=== PATIENT | male | born 1975 | race Caucasian/White ===

== ENCOUNTER 2017-04-08 20:16 | Emergency (ER) | payer OTHER ==
[~2017-04-08] VITALS: Ht 175.3 cm; Wt 95.3 kg
[~2017-04-08 20:16] MED LIST: AMLODIPINE PO; COREG PO; IBUPROFEN 800800 M1 PO; LIPITOR PO; LIPITOR10 MG; LISINOPRIL5 MG PO
[2017-04-08] MEDS ORDERED: LEXAPRO 10 MG T10 MG (20:29)
[2017-04-08] MEDS ORDERED: HYDROCODONE-AP1 EAC6 PO (22:30)
[2017-04-08 23:03] VITALS: BP 127/81
== END 2017-04-08 23:04 | disposition home or self-care (01) ==
LOC: M.ERS 20:16
DX: S92.351A Displaced fracture of fifth metatarsal bone, right foot, initial encounter for closed fracture (principal); E78.00 Pure hypercholesterolemia, unspecified; F17.200 Nicotine dependence, unspecified, uncomplicated; Z88.0 Allergy status to penicillin; Z88.1 Allergy status to other antibiotic agents; X50.1XXA Overexertion from prolonged static or awkward postures, initial encounter; Y93.89 Activity, other specified; Y92.89 Other specified places as the place of occurrence of the external cause; Y99.8 Other external cause status

== ENCOUNTER 2018-07-04 09:57 | Inpatient (IN) | payer OTHER ==
[2018-07-04] VITALS (11 sets, daily range): BP systolic 103–154; BP diastolic 49–88
[~2018-07-04] VITALS: Ht 175.3 cm; Wt 99.2 kg
[~2018-07-04 09:57] MED LIST changes: +CARVEDILOL3.125 MG PO; -COREG PO; +HYDROCODONE-AP1 EAC6 PO; +LEXAPRO 10 MG T10 MG PO; -LIPITOR10 MG; +LIPITOR10 MG PO
[2018-07-04 10:59] LABS: ABSOLUTE EOSINOPHILS 0.1 thou/uL (0.0-0.7); ABSOLUTE LYMPHOCYTES 1.3 thou/uL (0.8-5.3); ABSOLUTE MONOCYTES 1.3 thou/uL (0.0-1.2); ABSOLUTE NEUTROPHILS 4.7 thou/uL (1.6-8.1); BASOPHILS 0.3 %; EOSINOPHILS 1.9 %; HEMATOCRIT 38.3 % (42.0-52.0); HEMOGLOBIN 12.8 gm/dL (14.0-18.0); LYMPHOCYTES 17.4 %; MCH 26.2 pg (26.0-34.0); MCHC 33.5 g/dL (28.0-37.0); MCV 78.1 fL (80.0-100.0); MONOCYTES 17.5 %; MPV 8.8 fl. (7.2-11.1); NUCLEATED RBCS 0 /100WBC; PLATELET COUNT* 267 thou/uL (150-400); POLYS 62.9 %; RBC 4.91 mil/uL (4.50-6.00); RDW-CV 13.5 % (10.5-14.5); WBC 7.5 thou/uL (4.0-11.0)
[2018-07-04 11:13] LABS: APTT 28.9 Seconds (25.0-31.3)
[2018-07-04 11:23] LABS: CALCIUM 8.3 mg/dL (8.5-10.1); POTASSIUM 3.4 mmol/L (3.5-5.1)
[2018-07-04 11:25] LABS: TROPONIN-I LEVEL 1.64 ng/mL (<0.06)
[2018-07-04 11:28] LABS: ALBUMIN 2.8 g/dL (3.4-5.0); CK-MB MASS 3.4 ng/mL (<0.5-3.6); MAGNESIUM 2.2 mg/dL (1.8-2.4); TOTAL BILIRUBIN 0.7 mg/dL (<0.1-1.0); TOTAL PROTEIN 6.5 g/dL (6.4-8.2)
[2018-07-04 14:16] LABS: CHOLESTEROL 133 mg/dL (<200); HDL CHOLESTEROL 30 mg/dL (>40); LDL CHOLESTEROL 76 mg/dL (<100); TC:HDL 4.4 Ratio (Not establshd); TRIGLYCERIDE 137 mg/dL (<150); VLDL 27 mg/dL (<40)
[2018-07-04 14:17] LABS: SERUM ASSESSMENT Clear
--- NOTE | 2018-07-04 16:06 | EKG ---
[place] [address] ELECTROCARDIOGRAM REPORT Name: FRENCH SHARMA Room: [place] [address] ADM IN .R.#: [id number] Admission: 07/04/18 Attend Phys: Navya Olson MD Discharge: Date of : 73 Report #: [id number] THIS REPORT FOR: //name// [facility] ED Test Date: 2018-07-04 Test Time: 10:04:18 Pat Name: FRENCH SHARMA Department: Room: [facility] Gender: M Shop Hand: : 1975 Requested By: Adolfo Ro Order Number: [id number] MD: Yrn Nixon Measurements Intervals [place] Rate: 77 P: 38 WA: 151 QRS: -2 QRSD: 89 T: 19 QT: 381 QTc: 432 Interpretive Statements Sinus rhythm ST elevation suggests acute pericarditis Compared to ECG 04/25/2011 13:34:26 no change Electronically Signed On 07-04-2018 16:06:27 CDT by Yrn Nixon [email or web address] <ELECTRONICALLY SIGNED> By: Yrn Nixon MD, [facility] 07/04/18 1606 1004 1004 Yrn Nixon MD, [facility] /EPI
[2018-07-04 18:53] LABS: INFLUENZA A ANTIGEN None Detected (None Detect); INFLUENZA B ANTIGEN None Detected (None Detect)
[2018-07-05] VITALS (7 sets, daily range): BP systolic 81–113; BP diastolic 47–71
[2018-07-05 04:45] LABS: ANION GAP 7 mmol/L (7-16); BUN 10 mg/dL (7-18); CALCIUM 8.2 mg/dL (8.5-10.1); CHLORIDE 103 mmol/L (98-107); CHOLESTEROL 117 mg/dL (<200); CO2 32 mmol/L (21-32); GLUCOSE 107 mg/dL (70-99); HDL CHOLESTEROL 27 mg/dL (>40); LDL CHOLESTEROL 65 mg/dL (<100); POTASSIUM 3.3 mmol/L (3.5-5.1); SODIUM 142 mmol/L (136-145); TC:HDL 4.3 Ratio (Not establshd); TRIGLYCERIDE 127 mg/dL (<150); VLDL 25 mg/dL (<40)
[2018-07-05 04:54] LABS: SERUM ASSESSMENT CLEAR
[2018-07-05 04:55] LABS: TROPONIN-I LEVEL 1.48 ng/mL (<0.06)
--- NOTE | 2018-07-05 06:51 | CARD ---
[address] [address] CARDIAC CATH REPORT Name: FRENCH SHARMA Room: [address] IN [facility]#: [id number] Admission: 07/04/18 Attend Phys: Navya Olson MD Discharge: Date of : 73 Report #: [id number] THIS REPORT FOR: //name// APPROVED REPORT Study performed: 07/04/2018 13:45:45 Patient Details Patient Status: ED Room #: The patient is a 42 year-old male Event Personnel Yrn Nixon Manager Cable, Stacia Valero RN Press Maintainer, Abigail Bruno RN Monitor, Connor Reilly (R) Scrub Procedures Performed Art Access - L femoral artery* Left Heart Cath w/or w/o Coronarie LHC Hemostasis w/ Mynx Indication Abnormal ECG, Non-STEMI , Chest pain Risk Factors Hypercholesterolemia, Hypertension Procedure Narrative The patient was brought electively to the Cardiac Catheterization Laboratory and was prepped and draped in a sterile manner. The right wrist was infiltrated with 2% Lidocaine subcutaneous anesthesia. A Slender Glidesheath sheath was inserted into the right radial artery. Coronary angiography was performed using coronary diagnostic catheters. The right coronary system was accessed and visualized with a 6Fr. JR4 catheter. The left coronary system was accessed and visualized with a 6Fr JL 3.5 catheter. The left ventricle was accessed and visualized with a 6Fr. Pigtail catheter. Left ventricular/Aortic Valve gradient assessed via catheter pullback. Closure device was deployed with a [facility]. The patient tolerated the procedure well and there were no complications associated with the procedure. There was no hematoma. The Left Coronary System could not be visualized with the radial access site after trying a Cordova catheter. Attempt was difficulty secondary to a tortuous subclavian and aortic root. Arterial Access was then moved to the Groin JL4 catheter used to engage the left coronary artery. Angioseal used at the [place] [address] CARDIAC CATH REPORT Name: FRENCH SHARMA Room: [address]#: [id number] Admission: 07/04/18 Attend Phys: Navya Olson MD Discharge: Date of : 73 Report #: [id number] Intraoperative Conscious Sedation Fentanyl 25 mcg Dose: 1338 mGy Contrast Type and Amount: Visipaque 180 ml Coronary Angiography The patient's coronary anatomy is co- dominant. [place] Artery Percent Stenosis Left Main: 0 % Prox LAD: 0 % Mid/Distal LAD: 30 % Circumflex: 0 % RCA: 0 % Ramus: 0 %There appeared to be retrograde flow to the distal circumflex from the distal RCA. No significant stenosis was noted in the distal circumflex which appeared to have dual arterial blood supply. Left Ventriculography The left ventricle is normal in size with normal contractility. The left ventricular ejection fraction is estimated to be 50-55%. Left ventricular wall motion abnormalities are not present. There is no mitral insufficiency. Hemodynamics The aortic pressure is 103/48 mmHg with a mean of 51 mmHg. The left ventricular pressure is 91/20 mmHg with a mean of mmHg. The left ventricular end diastolic pressure is 24 mmHg. There was no gradient across the aortic valve upon pullback. Pullback from the left ventricle to the aorta revealed no gradient across the aortic valve. Conclusion 1. no significant CAD noted. The distal circumflex appeared to have a dual blood supply from the rca and circumflex 2. LVEF 50-55% Recommendations Aggressive Medical Therapy <ELECTRONICALLY SIGNED> By: Yrn Nixon MD, FACC 07/05/1850 0650Yrn Nixon MD, FACC /INF
--- NOTE | 2018-07-05 12:30 | 2DMMODE ---
[place] [address] 2 D/M-MODE ECHOCARDIOGRAM Name: FRENCH SHARMA Room: [address] IN [facility]#: [id number] Admission: 07/04/18 Attend Phys: Navya Olson, Discharge: Date of : 73 Date of Service: 07/05/18 1230 Report #: [id number] THIS REPORT FOR: //name// APPROVED REPORT Study performed: 07/05/2018 09:32:45 EXAM: Comprehensive 2D, Doppler, and color-flow Echocardiogram Patient Location: In-Patient Room #: [facility] Status: routine BSA: 2.15 HR: 81 bpm BP: 95/56 mmHg Rhythm: NSR Other Information Study Quality: Good Indications Chest Pain 2D Dimensions IVSd: 14.09 (7-11mm) LVOT Diam: 19.70 (18-24mm) LVDd: 45.56 mm PWd: 12.52 (7-11mm) Ascending Ao: 29.86 (22-36mm) LVDs: 29.70 (25-40mm) Aortic Root: 32.68 mm Volumes Left Atrial Volume (Systole) LA ESV Index: 38.40 mL/m2 Aortic Valve AoV Peak Renato.: 1.34 m/s AO Peak Gr.: 7.16 mmHg LVOT Max P.17 mmHg AO Mean Gr.: 4.04 mmHg LVOT Mean P.25 mmHg LVOT Max V: 1.14 m/s AO V2 VTI: 24.69 cm LVOT Mean V: 0.67 m/s MATTY (VTI): 2.68 cm2 LVOT V1 VTI: 21.73 cm Mitral Valve E/A Ratio: 3.07 MV Decel. Time: 157.47 ms MV E Max Renato.: 1.08 m/[place] [address] 2 D/M-MODE ECHOCARDIOGRAM Name: FRENCH SHARMA Room: [address] IN .R.#: [id number] Admission: 07/04/18 Attend Phys: Navya Olson, Discharge: Date of : 73 Date of Service: 07/05/18 1230 Report #: [id number] MV PHT: 45.67 ms MVA (PHT): 4.82 cm2 TDI E/Lateral E': 7.20 E/Medial E': 9.82 Medial E' Renato.: 0.11 m/s Lateral E' Renato.: 0.15 m/s Pulmonary Valve PV Peak Renato.: 1.02 m/s PV Peak Gr.: 4.19 mmHg Tricuspid Valve RAP Estimate: 5.00 mmHg TR Peak Gr.: 20.90 mmHg RVSP: 25.00 mmHg PA Pressure: 25.00 mmHg Left Ventricle The left ventricle is normal size. There is normal LV segmental wall motion. Mild concentric left ventricular hypertrophy. Left ventricular systolic function is normal. LVEF is 55-60%. Transmitral Doppler flow pattern suggests restrictive physiology. Right Ventricle The right ventricle is normal size. The right ventricular systolic function is normal. Atria Left atrium is mildly dilated. The right atrium size is normal. Aortic Valve The aortic valve is normal in structure. No aortic regurgitation is present. There is no aortic valvular stenosis. Mitral Valve The mitral valve is normal in structure. Trace mitral regurgitation. No evidence of mitral valve stenosis. Tricuspid Valve The tricuspid valve is normal in structure. Trace tricuspid regurgitation. No pulmonary hypertension. Pulmonic Valve The pulmonary valve is normal in structure. There is no pulmonic [place] [address] 2 D/M-MODE ECHOCARDIOGRAM Name: FRENCH SHARMA Trice Room: [address]#: [id number] Admission: 07/04/18 Attend Phys: Navya Olson, Discharge: Date of : 73 Date of Service: 07/05/18 1230 Report #: [id number] Great Vessels The aortic root is normal in size. IVC is normal in size and collapses >50% with inspiration. Pericardium There is no pericardial effusion. <Conclusion> The left ventricle is normal size. Mild concentric left ventricular hypertrophy. Left ventricular systolic function is normal. LVEF is 55-60%. Transmitral Doppler flow pattern suggests restrictive physiology. Left atrium is mildly dilated. Trace mitral regurgitation. Trace tricuspid regurgitation. No pulmonary hypertension. IVC is normal in size and collapses >50% with inspiration. <ELECTRONICALLY SIGNED> By: Brian Pereyra MD, FACC 07/05/18 1230 1230 1230 Brian Pereyra MD, FACC /INF
--- NOTE | 2018-07-05 13:22 | CON ---
[address] [address] CONSULTATION Name: FRENCH SHARMA Room: [address] IN M.R.#: [id number] Admission: 07/04/18 Attend Phys: Navya Olson MD Discharge: Date of : 73 Report #: [id number] THIS REPORT FOR: //name// CC: Navya Acosta DO TYPE OF REPORT: Cardiology consultation. HISTORY OF PRESENT ILLNESS: The patient is a 42-year-old white male who I was asked to see in the Emergency Room today after complaining of chest pain. The patient states about 6 years ago. He is having chest pain. He was admitted to [facility] and apparently had a heart catheterization showed no significant coronary artery disease. He was diagnosed with pericarditis. He has done well since that time, but notes that last weekend after going to a family outing, he developed nausea, vomiting, diarrhea that resolved after about 24 hours. He then notes that starting 2 days ago, he felt a pain in his chest. He described an ache in his chest, is worse if he took a deep breath. It is not necessarily related to exertion or meals. It goes up to his throat. Denied any associated shortness of breath, diaphoresis or nausea. He has had no bleeding or fever. He denied trauma to his chest. He denied a history of exertional dyspnea or syncope. PAST MEDICAL HISTORY: Significant for previous cyst removed from his finger in the past. He has a history of hypertension and hyperlipidemia. No history of diabetes. MEDICATIONS: Include aspirin, Lexapro, Lipitor, lisinopril and Coreg. ALLERGIES: He has an allergy to PENICILLIN and SULFA. FAMILY HISTORY: Both his mother and father has had coronary artery bypass surgery. SOCIAL HISTORY: He is , lives in [place]. He is a strategic consultant. No smoking. Does drink about a 6-pack of beer a week. No illicit drug use. REVIEW OF SYSTEMS: He has had no history of stroke, asthma, peptic ulcer disease, liver disease, kidney disease, cancer, psychiatric illness, chronic skin condition. PHYSICAL EXAMINATION: GENERAL: Revealed a young male, lying in a stretcher, appeared in no distress. VITAL SIGNS: Blood pressure 110/70, pulse is 80. He is afebrile. HEENT: He was anicteric. Conjunctivae pink. Mucous members moist. NECK: Veins are nondistended. No carotid bruits. Neck supple. CHEST: [place] [address] CONSULTATION Name: FRENCH SHARMA Room: [address]#: [id number] Admission: 07/04/18 Attend Phys: Navya Olson MD Discharge: Date of : 73 Report #: [id number] CARDIOVASCULAR: Regular rate and rhythm without rub or gallop or murmur. ABDOMEN: Soft. EXTREMITIES: Had no edema. Posterior tibial pulse 2+ bilaterally. SKIN: Warm and dry. NEUROLOGICAL: Nonfocal. LYMPHATIC: No adenopathy. MUSCULOSKELETAL: No joint effusion. RADIOLOGICAL DATA: ECG, sinus rhythm. He did have upsloping ST-segment elevation in I, aVL, V2 and V3. His workup in the Emergency Room today, he had a portable chest x-ray that showed what appeared to be a right lung infiltrate. LABORATORY DATA: His lab work today sodium 139, potassium 3.4 and creatinine 1.0. Liver function studies are normal. His troponin is 1.64 and it was actually 9.7 back in 2012. BNP is 470. Previous LDL was 73. White blood cell count 7.5 and hemoglobin 12.8. IMPRESSION AND RECOMMENDATIONS: 1. Chest pain. Possible txr-PH-seqdzskcp myocardial infarction. Recommend cardiac catheterization. 2. Hypertension. The patient has been on angiotensin-converting enzyme inhibitor and beta otto. 3. Hyperlipidemia. The patient is on a statin drug. 4. Recent episode of nausea, vomiting, diarrhea. 5. Recent infiltrate noted on chest x-ray. <ELECTRONICALLY SIGNED> By: Yrn Nixon MD, FACC 07/05/18 1322 1235 2313Djay Nixon MD, FACC /nt
--- NOTE | 2018-07-05 13:31 | EKG ---
[place] [address] ELECTROCARDIOGRAM REPORT Name: FRENCH SHARMA Room: [address] ADM IN M.R.#: [id number] Admission: 07/04/18 Attend Phys: Navya Olson MD Discharge: Date of : 73 Report #: [id number] THIS REPORT FOR: //name// [facility] Test Date: 2018-07-05 Test Time: 08:12:08 Pat Name: FRENCH SHARMA Department: Room: [address] Gender: M Claims Configuration Analyst: : 1975 Requested By: Yrn Nixon Order Number: [id number] MD: Yrn Nixon Measurements Intervals [place] Rate: 72 P: 38 NM: 152 QRS: -3 QRSD: 91 T: 11 QT: 390 QTc: 427 Interpretive Statements Sinus rhythm Borderline T abnormalities, inferior leads ST elev, probable normal early repol pattern Baseline wander in lead(s) II Compared to ECG 07/04/2018 10:04:18 ST (T wave) deviation still present Electronically Signed On 07-05-2018 13:30:52 CDT by Yrn Nixon [email or web address] <ELECTRONICALLY SIGNED> By: Yrn Nixon MD, [facility] 07/05/18 1330 1 1 Yrn Nixon MD, [facility] /EPI
[2018-07-06] VITALS (7 sets, daily range): BP systolic 103–124; BP diastolic 56–77
[2018-07-06 05:16] LABS: ABSOLUTE EOSINOPHILS 0.3 thou/uL (0.0-0.7); ABSOLUTE LYMPHOCYTES 1.7 thou/uL (0.8-5.3); ABSOLUTE MONOCYTES 0.8 thou/uL (0.0-1.2); ABSOLUTE NEUTROPHILS 2.9 thou/uL (1.6-8.1); BASOPHILS 0.7 %; EOSINOPHILS 5.7 %; HEMATOCRIT 36.1 % (42.0-52.0); HEMOGLOBIN 12.1 gm/dL (14.0-18.0); LYMPHOCYTES 29.4 %; MCH 26.3 pg (26.0-34.0); MCHC 33.6 g/dL (28.0-37.0); MCV 78.2 fL (80.0-100.0); MONOCYTES 13.6 %; MPV 8.6 fl. (7.2-11.1); NUCLEATED RBCS 0 /100WBC; PLATELET COUNT* 272 thou/uL (150-400); POLYS 50.6 %; RBC 4.61 mil/uL (4.50-6.00); RDW-CV 13.4 % (10.5-14.5); WBC 5.8 thou/uL (4.0-11.0)
[2018-07-06 05:39] LABS: CALCIUM 8.9 mg/dL (8.5-10.1); POTASSIUM 4.4 mmol/L (3.5-5.1); TROPONIN-I LEVEL 0.32 ng/mL (<0.06)
[2018-07-06] MEDS ORDERED: LEVAQUIN 500 M500 M2 PO (11:27)
[2018-07-06] MEDS ORDERED: IBUPROFEN 800800 M1 PO (11:28)
== END 2018-07-06 12:40 | disposition home or self-care (01) | DRG 280 ==
LOC: M.ERS 09:57 → M.2W 12:16 → M.TBA-ER 12:16 → M.2W 16:20
PROVIDERS: Family Medicine; Internal Medicine; Internal Medicine Cardiovascular Disease; ADMIT Internal Medicine
PROC: B211YZZ Fluoroscopy of Multiple Coronary Arteries using Other Contrast (ICD-10-PCS; principal; 2018-07-04)
PROC: 4A023N7 Measurement of Cardiac Sampling and Pressure, Left Heart, Percutaneous Approach (ICD-10-PCS; principal; 2018-07-04)
DX: I21.4 Non-ST elevation (NSTEMI) myocardial infarction (principal); I40.9 Acute myocarditis, unspecified; J15.6 Pneumonia due to other Gram-negative bacteria; I10 Essential (primary) hypertension; E78.5 Hyperlipidemia, unspecified; F17.210 Nicotine dependence, cigarettes, uncomplicated; E78.00 Pure hypercholesterolemia, unspecified; Z87.81 Personal history of (healed) traumatic fracture; Z88.0 Allergy status to penicillin; Z88.2 Allergy status to sulfonamides; Z82.49 Family history of ischemic heart disease and other diseases of the circulatory system; Z79.82 Long term (current) use of aspirin; Z79.899 Other long term (current) drug therapy

== ENCOUNTER → 2018-12-12 | Outpatient (CLI) | payer OTHER ==
[~2018-12-12] MED LIST changes: +LEVAQUIN 500 M500 M2 PO
[2018-12-12 15:29] LABS: CREATININE 1.1 mg/dL (0.6-1.3)
== END ==
LOC: M.CT 14:32 → M.LAB 15:00 → M.CT 15:00
PROVIDERS: Nurse Practitioner Family
DX: K57.32 Diverticulitis of large intestine without perforation or abscess without bleeding (principal)